=== PATIENT | female | born 1960 | race Hispanic/Latino ===

== ENCOUNTER 2017-12-19 23:21 | Emergency (ER) | payer OTHER ==
[~2017-12-19] VITALS: Ht 170.2 cm; Wt 57.3 kg
[2017-12-19] MEDS ORDERED: VASOTEC10 M1 PO (23:31)
[2017-12-19] MEDS ORDERED: HYDROCHLOROTHIA25 MG PO (23:31)
[2017-12-19] MEDS ORDERED: RANITIDINE HCL150 MG PO (23:31)
[2017-12-19] MEDS ORDERED: METFORMIN HCL500 MG PO (23:31)
[2017-12-20] MEDS ORDERED: ZOFRAN ODT4 MG SL (00:21)
[2017-12-20] MEDS ORDERED: DICYCLOMINE HCL20 MG PO (00:21)
[2017-12-20 00:22] VITALS: BP 137/73
== END 2017-12-20 00:54 | disposition home or self-care (01) ==
LOC: ER 23:21 → EDSEX 23:21 → ER 12-20 00:54
DX: R10.11 Right upper quadrant pain (principal); R10.13 Epigastric pain; R11.2 Nausea with vomiting, unspecified; I10 Essential (primary) hypertension; E11.9 Type 2 diabetes mellitus without complications; K21.9 Gastro-esophageal reflux disease without esophagitis
CPT/HCPCS: 99282